=== PATIENT | male | born 1985 | race Caucasian/White ===

== ENCOUNTER 2017-11-27 19:20 | Emergency (ER) | payer BC ==
[2017-11-27] MEDS ORDERED: HYDROcodone/ACETAMIN 5-325 MG* 1 TAB PO ONE (20:30)
--- NOTE | 2017-11-27 21:07 | ED ---
Lower Extremity - HPI Summary HPI Summary: Patient complains of left lower extremity pain from foot to left knee after mechanical fall today. Patient states pain with ambulation and flexion and extension of left knee, left ankle. Patient was attempting to jump off a six- foot bridge but slipped and fell before actually jumping off bridge. Denies head trauma, LOC, N/V, BURT, neck pain, back pain, bilateral upper extremity pain , right lower extremity pain, abdominal pain, chest wall pain. Medical history is none. Surgical history is left elbow repair. Positive smoker. Denies EtOH , illegal drug use. - History of Current Complaint Chief Complaint: EDExtremityLower Stated Complaint: LT KNEE INJURY/NUMBNESS Time Seen by Provider: 11/27/17 19:55 Hx Obtained From: Patient Mechanism Of Injury: Fall From A Standing Position Onset of Pain: Immediate Onset/Duration: Hours Severity Initially: Moderate Severity Currently: Moderate Pain Intensity: 8 Pain Scale Used: 0-10 Numeric Timing: Constant Associated Signs And Symptoms: Positive: Knee Pain Aggravating Factor(s): Standing, Ambulation, Movement, Weight Bearing Alleviating Factor(s): Nothing Able to Bear Weight: Yes - Allergies/Home Medications Allergies/Adverse Reactions: Allergies Allergy/AdvReac Type Severity Reaction Status Date / Time cyclobenzaprine Allergy Swelling Verified 11/27/17 19:35 [From Flexeril] PMH/Surg Hx/FS Hx/Imm Hx Endocrine/Hematology History: Denies: Hx Diabetes, Hx Thyroid Disease Cardiovascular History: Reports: Hx Hypertension - Pt report HX of HTN Respiratory History: Reports: Hx Asthma Denies: Hx Chronic Obstructive Pulmonary Disease (COPD) GI History: Denies: Hx Ulcer Sensory History: Denies: Hx Cataracts EENT History: Denies: Hx Deafness Neurological History: Denies: Hx CVA Psychiatric History: Reports: Hx Attention Deficit Hyperactivity Disorder, Hx Bipolar Disorder, Hx of Violent Episodes Against Others Denies: Hx Eating Disorder - Cancer History Hx Chemotherapy: No - Surgical History Surgery Procedure, Year, and Place: abdominal surgery, elbow surgery Infectious Disease History: No Infectious Disease History: Reports: Hx Hepatitis - C Denies: Hx Clostridium Difficile, Hx Human Immunodeficiency Virus (HIV), Hx of Known/Suspected MRSA, Hx Shingles, Hx Tuberculosis, Hx Known/Suspected VRE, Hx Known/Suspected VRSA, History Other Infectious Disease, Traveled Outside the [place] in Last 30 Days - Family History Known Family History: Positive: Hypertension, Other - cancer - Social History Alcohol Use: Occasionally Alcohol Amount: 30 pack /day per H&P, Pt stated to nursing staff 30 pack per week pt unsure Substance Use Type: Reports: None Smoking Status (MU): Heavy Every Day Tobacco Smoker Type: Cigarettes, Smokeless Tobacco Amount Used/How Often: 1 can/ day 10-20 cigarettes rolled per day Length of Time of Smoking/Using Tobacco: "I began at age 3" Have You Smoked in the Last Year: Yes Review of Systems Constitutional: Negative Eyes: Negative ENT: Negative Cardiovascular: Negative Respiratory: Negative Gastrointestinal: Negative Genitourinary: Negative Positive: Other Positive: Bruising Neurological: Negative Psychological: Normal All Other Systems Reviewed And Are Negative: Yes Physical Exam - Summary Physical Exam Summary: Abrasion to left knee. No erythema, ecchymosis, deformity, swelling, extra warmth to left knee joint, left ankle joint, left foot. Tenderness to palpation of left knee, left ankle, left foot. Patient will not flex or extend left knee "because of pain". Flexion and extension of left ankle with pain. PMS intact distally. Triage Information Reviewed: Yes Vital Signs On Initial Exam: Initial Vitals Temp Pulse Resp BP Pulse Ox 99.2 F 89 18 132/77 97 11/27/17 19:20 11/27/17 19:20 11/27/17 19:20 11/27/17 19:20 11/27/17 19:20 Vital Signs Reviewed: Yes Appearance: Positive: Well-Appearing Skin: Positive: Warm Head/Face: Positive: Normal Head/Face Inspection Eyes: Positive: Normal Neck: Positive: Supple Respiratory/Lung Sounds: Positive: Clear to Auscultation Cardiovascular: Positive: Normal Abdomen Description: Positive: Nontender Musculoskeletal: Positive: Other Neurological: Positive: Normal Psychiatric: Positive: Normal AVPU Assessment: Alert - Margie Coma Scale Best Eye Response: 4 - Spontaneous Best Motor Response: 6 - Obeys Commands Best Verbal Response: 5 - Oriented Coma Scale Total: 15 Diagnostics - Vital Signs Vital Signs Temp Pulse Resp BP Pulse Ox 11/27/17 19:20 99.2 F 89 18 132/77 97 - Laboratory Lab Statement: Any lab studies that have been ordered have been reviewed, and results considered in the medical decision making process. - Radiology foot Xray Interpretation: No Acute Changes Radiology Interpretation Completed By: Radiologist ank;le Xray Interpretation: No Acute Changes Radiology Interpretation Completed By: Radiologist knee Xray Interpretation: No Acute Changes Radiology Interpretation Completed By: Radiologist Lower Extremity Course/Dx - Course Course Of Treatment: Patient complains of left lower extremity pain from foot to left knee after mechanical fall today. Patient states pain with ambulation and flexion and extension of left knee, left ankle. Patient was attempting to jump off a six-foot bridge but slipped and fell before actually jumping off bridge. Denies head trauma, LOC, N/V, BURT, neck pain, back pain, bilateral upper extremity pain, right lower extremity pain, abdominal pain, chest wall pain. Medical history is none. Surgical history is left elbow repair. Positive smoker. Denies EtOH, illegal drug use. Abrasion to left knee. No erythema, ecchymosis, deformity, swelling, extra warmth to left knee joint, left ankle joint, left foot. Tenderness to palpation of left knee, left ankle, left foot. Patient will not flex or extend left knee "because of pain". Flexion and extension of left ankle with pain. PMS intact distally. Imaging negative. Ankle brace and crutches for patient. Abrasion washed. Follow-up with orthopedics if symptoms do not improve. - Diagnoses Provider Diagnoses: Fall Discharge - Sign-Out/Discharge Documenting (check all that apply): Discharge/Admit/Transfer - Discharge Plan Condition: Stable Disposition: HOME Referrals: Cain Moreno MD [Primary Care Provider] - Shiela Ba MD [Medical Doctor] - Additional Instructions: Ice, elevation, Tylenol and ibuprofen for pain until symptoms improve. If symptoms do not improve within 5-7 days follow-up with orthopedics Dr. Ba. Return to the ED for any new or worsening symptoms - Billing Disposition and Condition Condition: STABLE Disposition: Home
--- NOTE | 2017-11-27 21:15 | RAD ---
INDICATION: Left ankle injury. TECHNIQUE: 3 views of the left ankle were obtained. FINDINGS: The bones are in normal alignment. No fracture is seen. Joint spaces appear maintained. IMPRESSION: NO EVIDENCE FOR FRACTURE.
--- NOTE | 2017-11-27 21:17 | RAD ---
INDICATION: Left foot injury. TECHNIQUE: 3 views of the left foot were obtained. FINDINGS: The bones are in normal alignment. No fracture is seen. Joint spaces appear maintained. IMPRESSION: NO EVIDENCE OF FRACTURE. IF THE PATIENT'S SYMPTOMS PERSIST RECOMMEND FOLLOW-UP IMAGING.
--- NOTE | 2017-11-27 21:18 | RAD ---
INDICATION: Left knee injury. TECHNIQUE: 4 views of the left knee were obtained. FINDINGS: The bones are in normal alignment. No joint effusion or fracture is seen. Joint spaces appear maintained. IMPRESSION: NO EVIDENCE FOR FRACTURE.
[2017-11-27 22:00] VITALS: BP 136/85
== END 2017-11-27 21:55 | disposition home or self-care (01) ==
LOC: ED 19:20
DX: M79.672 Pain in left foot (principal); M25.562 Pain in left knee; W01.0XXA Fall on same level from slipping, tripping and stumbling without subsequent striking against object, initial encounter; Y92.89 Other specified places as the place of occurrence of the external cause; F17.210 Nicotine dependence, cigarettes, uncomplicated; F17.290 Nicotine dependence, other tobacco product, uncomplicated; Z88.8 Allergy status to other drugs, medicaments and biological substances
CPT/HCPCS: 99283

== ENCOUNTER 2018-04-14 00:08 | Emergency (ER) | payer BC, MEDICAID ==
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
[2018-04-14] MEDS ORDERED: Cephalexin CAP* 500 MG PO ONE (01:05)
[2018-04-14 01:16] VITALS: BP 139/79
== END 2018-04-14 01:15 | disposition home or self-care (01) ==
LOC: ED 00:08
DX: S91.115A Laceration without foreign body of left lesser toe(s) without damage to nail, initial encounter (principal); S00.81XA Abrasion of other part of head, initial encounter; W25.XXXA Contact with sharp glass, initial encounter; Y04.0XXA Assault by unarmed brawl or fight, initial encounter; Y92.9 Unspecified place or not applicable; I10 Essential (primary) hypertension; F31.9 Bipolar disorder, unspecified; F90.9 Attention-deficit hyperactivity disorder, unspecified type; F17.210 Nicotine dependence, cigarettes, uncomplicated; S71.011A Laceration without foreign body, right hip, initial encounter; W26.0XXA Contact with knife, initial encounter
CPT/HCPCS: 12001; 99282; A9270-GY

== ENCOUNTER 2018-12-22 06:39 | Emergency (ER) | payer MEDICAID ==
[2018-12-22] MEDS ORDERED: Ketorolac *IM* INJ* 60 MG/2 ML VIAL IM ONE (07:20)
--- NOTE | 2018-12-22 08:32 | ED ---
Skin Complaint - HPI Summary HPI Summary: Patient is a 33-year-old male presenting to the ED with right arm pain. He states he injected methamphetamine last night around midnight, and immediately following had pains shooting to the fingertips as well as up into the neck. He denies any numbness or tingling, only pain. He is also endorsing swelling and ecchymosis around the injection site. He denies injecting previously, however he is noted to have several tracts to the bilateral arms. He has been endorsing pain since the injection and states the area has not been improving. Denies recent illness, fevers, sweats, chills. - History of Current Complaint Chief Complaint: EDExtremityUpper Time Seen by Provider: 12/22/18 06:54 Stated Complaint: R ARM PAIN/POS OVERDOSE PER EMS Hx Obtained From: Patient Onset/Duration: Started Hours Ago Skin Exposure Onset/Duration: Hours Ago Timing: Constant Onset Severity: Severe Current Severity: Severe Pain Intensity: 10 Pain Scale Used: 0-10 Numeric Aggravating Symptom(s): Touch Associated Signs & Symptoms: Negative Related History: Trauma, Alcohol/Drug intoxication - Additional Pertinent History Primary Care Physician: [id number] - Allergy/Home Medications Allergies/Adverse Reactions: Allergies Allergy/AdvReac Type Severity Reaction Status Date / Time cyclobenzaprine Allergy Severe Anaphylatic Verified 12/22/18 06:45 [From Flexeril] Shock PMH/Surg Hx/FS Hx/Imm Hx Previously Healthy: Yes Endocrine/Hematology History: Denies: Hx Diabetes, Hx Thyroid Disease Cardiovascular History: Reports: Hx Hypertension - Pt report HX of HTN Respiratory History: Reports: Hx Asthma Denies: Hx Chronic Obstructive Pulmonary Disease (COPD) GI History: Denies: Hx Ulcer Sensory History: Denies: Hx Cataracts, Hx Deafness Opthamlomology History: Denies: Hx Cataracts Neurological History: Denies: Hx CVA Psychiatric History: Reports: Hx Attention Deficit Hyperactivity Disorder, Hx Bipolar Disorder, Hx of Violent Episodes Against Others Denies: Hx Eating Disorder - Cancer History Hx Chemotherapy: No - Surgical History Surgery Procedure, Year, and Place: abdominal surgery, elbow surgery - Immunization History Date of Tetanus Vaccine: UTD Hx Pertussis Vaccination: No Immunizations Up to Date: Yes Infectious Disease History: No Infectious Disease History: Reports: Hx Hepatitis - C Denies: Hx Clostridium Difficile, Hx Human Immunodeficiency Virus (HIV), Hx of Known/Suspected MRSA, Hx Shingles, Hx Tuberculosis, Hx Known/Suspected VRE, Hx Known/Suspected VRSA, History Other Infectious Disease, Traveled Outside the [place] in Last 30 Days - Family History Known Family History: Positive: Hypertension, Other - cancer - Social History Occupation: Employed Full-time Lives: With Family Alcohol Use: None Alcohol Amount: 30 pack /day per H&P, Pt stated to nursing staff 30 pack per week pt unsure Hx Substance Use: Yes Substance Use Type: Reports: Other - injects methamphetamine Hx Tobacco Use: Yes Smoking Status (MU): Heavy Every Day Tobacco Smoker Type: Cigarettes, Smokeless Tobacco Amount Used/How Often: 1 can/ day 10-20 cigarettes rolled per day Length of Time of Smoking/Using Tobacco: "I began at age 3" Have You Smoked in the Last Year: Yes Review of Systems Constitutional: Negative Negative: Fever, Chills, Fatigue, Skin Diaphoresis Negative: Palpitations, Chest Pain Negative: Shortness Of Breath, Cough Genitourinary: Negative Positive: no symptoms reported, see HPI Negative: Arthralgia, Myalgia Skin: Negative Neurological: Negative All Other Systems Reviewed And Are Negative: Yes Physical Exam Triage Information Reviewed: Yes Vital Signs On Initial Exam: Initial Vitals Temp Pulse Resp BP Pulse Ox 98.8 F 92 16 168/104 99 12/22/18 06:40 12/22/18 06:40 12/22/18 06:40 12/22/18 06:40 12/22/18 06:40 Vital Signs Reviewed: Yes Appearance: Positive: Well-Appearing, Well-Nourished Skin: Positive: Other - several inj sites/track christie throughout bilateral forearms Head/Face: Positive: Normal Head/Face Inspection Eyes: Positive: EOMI, KURTIS, Conjunctiva Clear Neck: Positive: Supple, No Lymphadenopathy Respiratory/Lung Sounds: Positive: Clear to Auscultation, Breath Sounds Present Cardiovascular: Positive: RRR, Pulses are Symmetrical in both Upper and Lower Extremities Musculoskeletal: Positive: Pain @ - right forearm distal to the R antecubital fossa developed Neurological: Positive: Speech Normal Diagnostics - Vital Signs Vital Signs Temp Pulse Resp BP Pulse Ox 12/22/18 07:00 85 22 99 12/22/18 06:49 89 26 99 12/22/18 06:40 98.8 F 92 16 168/104 99 - Laboratory Lab Statement: Any lab studies that have been ordered have been reviewed, and results considered in the medical decision making process. Course/Dx - Course Course Of Treatment: Patient's evaluated for right arm pain after injecting methamphetamine last evening. On physical examination, there is approximate 5 cm in length to 3 cm in width slightly raised area over the injection site just distal to the antecubital fossa to the radial side of the forearm. There are several injection site/track christie to the bilateral arms. Pulses +2 intact bilaterally. No numbness or tingling. Patient has full range of motion to the fingertips, hand, wrist, elbow, shoulder. He states the pain dissipates when he compresses the arm near the antecubital area. However when he lets go, the pain returns. It is rated a 10 out of 10, sharp and shooting. US obtained to assess for FB, clot and/or intramuscular edema vs. abscess vs hematoma. He is given toradol in the ED. US reveals a SVT. Toradol as rx. - Diagnoses Provider Diagnoses: Superficial thrombophlebitis of arm, Methamphetamine abuse, Injection site reaction Discharge - Sign-Out/Discharge Documenting (check all that apply): Patient Departure Patient Received Moderate/Deep Sedation with Procedure: No - Discharge Plan Condition: Stable Disposition: HOME Prescriptions: Ketorolac TAB * [Toradol TAB *] 10 mg PO Q6H #16 tab Sulfamethox/Trimethoprim DS* [Bactrim DS 800/160 TAB*] 1 tab PO BID #10 tab Patient Education Materials: Superficial Thrombophlebitis (ED) Referrals: Cain Moreno MD [Medical Doctor] - Additional Instructions: Toradol four times daily x 4 days Bactrim twice daily x 5 days - Billing Disposition and Condition Condition: STABLE Disposition: Home
[2018-12-22 09:16] VITALS: BP 141/91
== END 2018-12-22 09:15 | disposition home or self-care (01) ==
LOC: ED 06:39
DX: I80.8 Phlebitis and thrombophlebitis of other sites (principal); F15.10 Other stimulant abuse, uncomplicated; I10 Essential (primary) hypertension; F17.210 Nicotine dependence, cigarettes, uncomplicated; Z88.8 Allergy status to other drugs, medicaments and biological substances
CPT/HCPCS: 96372; 99282; J1885

== ENCOUNTER 2019-04-14 06:29 | Emergency (ER) | payer MEDICAID ==
--- NOTE | 2019-04-14 07:27 | ED ---
Head Injury - HPI Summary HPI Summary: Patient is a 33-year-old male who presents to emergency department for head injury that occurred around 0 100 today. Patient states he recently started working at [employer] and his shift starts around 0 300. Patient states he has been sleeping and upright office chair and at some point last night fell off chair while sleeping and struck head on a wood burner. Patient is unsure if fall woke him up and is unsure if he lost consciousness. Patient states since has had a headache 5 out of 10 and is felt dizzy. Patient states he went to work and his boss referred him to the ER for evaluation given pain and dizziness and inability to work. No other injuries were sustained. Last tetanus immunization was within 5 years. Patient has history of drug and alcohol use but denies any use recently. Symptoms are moderate in severity. No current modifying factors. - History Of Current Complaint Chief Complaint: EDHeadInjury Stated Complaint: HEAD LAC PER PT Time Seen by Provider: 04/14/19 06:54 Hx Obtained From: Patient Pain Intensity: 5 - Allergies/Home Medications Allergies/Adverse Reactions: Allergies Allergy/AdvReac Type Severity Reaction Status Date / Time cyclobenzaprine Allergy Severe Anaphylatic Verified 04/14/19 07:11 [From Flexeril] Shock Home Medications: Home Medications NK [No Home Medications Reported] 04/14/19 [History Confirmed 04/14/19] PMH/Surg Hx/FS Hx/Imm Hx Previously Healthy: Yes Endocrine/Hematology History: Denies: Hx Diabetes, Hx Thyroid Disease Cardiovascular History: Reports: Hx Hypertension - Pt report HX of HTN Respiratory History: Reports: Hx Asthma Denies: Hx Chronic Obstructive Pulmonary Disease (COPD) GI History: Denies: Hx Ulcer Sensory History: Denies: Hx Cataracts, Hx Deafness Opthamlomology History: Denies: Hx Cataracts Neurological History: Denies: Hx CVA Psychiatric History: Reports: Hx Attention Deficit Hyperactivity Disorder, Hx Bipolar Disorder, Hx of Violent Episodes Against Others Denies: Hx Eating Disorder - Cancer History Hx Chemotherapy: No - Surgical History Surgery Procedure, Year, and Place: abdominal surgery, elbow surgery - Immunization History Date of Tetanus Vaccine: UTD Infectious Disease History: No Infectious Disease History: Reports: Hx Hepatitis - C Denies: Hx Clostridium Difficile, Hx Human Immunodeficiency Virus (HIV), Hx of Known/Suspected MRSA, Hx Shingles, Hx Tuberculosis, Hx Known/Suspected VRE, Hx Known/Suspected VRSA, History Other Infectious Disease, Traveled Outside the [place] in Last 30 Days - Family History Known Family History: Positive: Hypertension, Other - cancer, Non-Contributory - Social History Occupation: Employed Full-time Lives: With Family Alcohol Use: None Alcohol Amount: "not in a long time" Hx Substance Use: Yes Substance Use Type: Reports: None Hx Tobacco Use: Yes Smoking Status (MU): Heavy Every Day Tobacco Smoker Type: Cigarettes, Smokeless Tobacco Amount Used/How Often: 1 can/ day 10-20 cigarettes rolled per day Length of Time of Smoking/Using Tobacco: "I began at age 3" Have You Smoked in the Last Year: Yes Review of Systems Eyes: Negative ENT: Negative Cardiovascular: Negative Respiratory: Negative Gastrointestinal: Negative Positive: Other - scalp laceration Positive: Headache All Other Systems Reviewed And Are Negative: Yes Physical Exam Triage Information Reviewed: Yes Vital Signs On Initial Exam: Initial Vitals Temp Pulse Resp BP Pulse Ox 98.8 F 91 18 140/58 98 04/14/19 06:31 04/14/19 06:31 04/14/19 06:31 04/14/19 06:31 04/14/19 06:31 Vital Signs Reviewed: Yes Appearance: Positive: Well-Nourished - Patient sitting on bed looking down. Poor eye contact. Difficulty understanding patient with speaking. Slightly delayed responses. Skin: Positive: Warm, Dry Head/Face: Positive: Other - 4 cm irregular superficial laceration noted to the right aspect of the frontal scalp. No active bleeding. Eyes: Positive: Normal, EOMI, KURTIS Neck: Positive: Supple Musculoskeletal: Positive: Normal, Strength/ROM Intact Neurological: Positive: Normal, Alert, Oriented to Person Place, Time, CN Intact II-III Psychiatric: Positive: Depressed Procedures - Procedure Summary Procedure Summary: Wound care: A 4 cm irregular laceration to the right anterior scalp was cleaned with Hibiclens and saline. 2 layers of skin adhesion was placed to approximate wound. Patient tolerated well. - Sedation Patient Received Moderate/Deep Sedation with Procedure: No Diagnostics - Vital Signs Vital Signs Temp Pulse Resp BP Pulse Ox 04/14/19 07:00 85 98 04/14/19 06:55 90 134/82 98 04/14/19 06:31 98.8 F 91 18 140/58 98 - Laboratory Lab Statement: Any lab studies that have been ordered have been reviewed, and results considered in the medical decision making process. Head Injury Course/Dx Assessment/Plan: Patient presenting for evaluation after head injury and scalp laceration. Patient's is a poor historian and unable clear of the exact injury. Patient has an odd affect on exam. Given history of drug and alcohol use Will obtain CT scan to rule out intracranial injury due to possible intoxication, poor historian and thought affect. Brain CT negative for acute findings per radiology. Wound was cared for as noted above. Patient can follow up with the [facility] within one week for recheck. Advised patient Tylenol which pain as directed. To return to the er if symptoms change or worsen. Patient understands and agrees with plan. - Diagnoses Differential Diagnosis/HQI/PQRI: Concussion With LOC, Concussion Without LOC, Hematoma, Intracranial Bleed, Laceration, Skull Fracture Provider Diagnoses: Head injury, Scalp laceration Discharge ED - Sign-Out/Discharge Documenting (check all that apply): Patient Departure - Discharge Plan Condition: Good Disposition: HOME Patient Education Materials: Laceration (ED), Head Injury (ED), Skin Adhesive Care (ED) Referrals: [facility] [Outside] Additional Instructions: Follow up with the [facility] for recheck within one week Keep wound clean and dry Tylenol or Motrin for pain as directed Return to ER if symptoms change or worsen - Billing Disposition and Condition Condition: GOOD Disposition: Home - Attestation Statements Provider Attestation: I was available for consultation for this patient. I did not evaluate the patient or participate in any medical decision making or disposition decisions unless I am specifically named in the chart as having consulted on the patient. If I have consulted on the patient, please see my own ED note on the patient encounter. Bhavesh Whalen MD
[2019-04-14 08:39] VITALS: BP 154/90
== END 2019-04-14 08:40 | disposition home or self-care (01) ==
LOC: ED 06:29
DX: S01.01XA Laceration without foreign body of scalp, initial encounter (principal); W07.XXXA Fall from chair, initial encounter; Y92.9 Unspecified place or not applicable; Z88.8 Allergy status to other drugs, medicaments and biological substances; I10 Essential (primary) hypertension; J45.909 Unspecified asthma, uncomplicated; F90.9 Attention-deficit hyperactivity disorder, unspecified type; F31.9 Bipolar disorder, unspecified; F17.210 Nicotine dependence, cigarettes, uncomplicated
CPT/HCPCS: 12002; 70450; 99282

== ENCOUNTER 2019-05-10 16:20 | Emergency (ER) | payer SELFPAY ==
[2019-05-10 16:47] VITALS: BP 151/82
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
== END 2019-05-10 18:08 | disposition home or self-care (01) ==
LOC: UCEAST 16:20
DX: J18.1 Lobar pneumonia, unspecified organism (principal); I10 Essential (primary) hypertension; F17.290 Nicotine dependence, other tobacco product, uncomplicated; Z88.8 Allergy status to other drugs, medicaments and biological substances; Z79.899 Other long term (current) drug therapy
CPT/HCPCS: 71046; 99212; G0463

== ENCOUNTER 2019-08-02 08:38 | Emergency (ER) | payer SELFPAY ==
[2019-08-02 08:57] VITALS: BP 151/91
--- NOTE | 2019-08-02 09:41 | UC ---
Lower Extremity/Ankle HPI - HPI Summary HPI Summary: PATIENT WORKS FOR [employer]. DROPPED A VERY HEAVY BOX ON HIS RIGHT FOOT JUST PRIOR TO ARRIVAL. IS COMPLAINING OF PAIN OVER THE BRIDGE OF HIS RIGHT FOOT AND SWELLING. STATES THAT FOR THE PAST COUPLE OF WEEKS HE HAS NOTICED REDNESS AND SWELLING IN BOTH HIS FEET. DENIES BEING OUT IN THE COLD/WET FOR ANY SIGNIFICANT PERIOD OF TIME. NO PAIN. NO FEVER. - History of Current Complaint Chief Complaint: UCLowerExtremity Stated Complaint: FOOT INJURY Time Seen by Provider: 08/02/19 09:40 Hx Obtained From: Patient Onset/Duration: Sudden Onset, Lasting Hours Severity Initially: Moderate Severity Currently: Moderate Pain Intensity: 6 Pain Scale Used: 0-10 Numeric Aggravating Factor(s): Standing, Ambulation Alleviating Factor(s): Rest, Elevation Able to Bear Weight: Yes - Allergies/Home Medications Allergies/Adverse Reactions: Allergies Allergy/AdvReac Type Severity Reaction Status Date / Time cyclobenzaprine Allergy Severe Anaphylatic Verified 08/02/19 08:57 [From Flexeril] Shock Home Medications: Home Medications Pseudoephedrine HCL ER TAB* [Sudafed 12 Hour*] 120 mg PO BID 08/02/19 [History Confirmed 08/02/19] PMH/Surg Hx/FS Hx/Imm Hx Cardiovascular History: Hypertension Respiratory History: Asthma Other History Of: Hepatitis C - Surgical History Surgical History: Yes Surgery Procedure, Year, and Place: abdominal surgery, elbow surgery - Family History Known Family History: Positive: Hypertension, Other - cancer, Non-Contributory - Social History Alcohol Use: Rare Alcohol Amount: "not in a long time" Substance Use Type: None Smoking Status (MU): Former Smoker Type: Cigars Amount Used/How Often: 1 can/ day 10-20 cigarettes rolled per day Length of Time of Smoking/Using Tobacco: "I began at age 3" Have You Smoked in the Last Year: Yes Household Exposure Type: Cigarettes - Immunization History Most Recent Influenza Vaccination: never Most Recent Tetanus Shot: 2014 Most Recent Pneumonia Vaccination: unknown Review of Systems All Other Systems Reviewed And Are Negative: Yes Constitutional: Positive: Negative Skin: Positive: Other - FOOT ERYTHEMA Respiratory: Positive: Negative Cardiovascular: Positive: Negative Gastrointestinal: Positive: Negative Musculoskeletal: Positive: Edema Physical Exam Triage Information Reviewed: Yes Appearance: Well-Appearing, No Pain Distress, Well-Nourished Vital Signs: Initial Vital Signs Temp 98.1 F 08/02/19 08:52 Pulse 101 08/02/19 08:52 Resp 18 08/02/19 08:52 BP 151/91 08/02/19 08:52 Pulse Ox 97 08/02/19 08:52 Eyes: Positive: Conjunctiva Clear ENT: Positive: Hearing grossly normal Neck: Positive: Supple Respiratory: Positive: No respiratory distress, No accessory muscle use Cardiovascular: Positive: Pulses Normal Abdomen Description: Positive: Soft Musculoskeletal: Positive: Edema @ - 1+ RIGHT FOOT/ANKLE EDEMA., Other: - TTP RIGHT FOOT OVERLYING 1ST, 2ND METATARSALS Neurological: Positive: Alert Psychological: Positive: Age Appropriate Behavior Skin: Positive: Other - BILATERAL FEET EXTREMELY DIRTY AND ERYTHEMATOUS WITH MULTIPLE HEALING ABRASIONS ON FEET, ANKLES AND SHINS. NOT TENDER Diagnostics - Radiology RIGHT FOOT XRAYS Radiology Interpretation Completed By: Radiologist Summary of Radiographic Findings: NO ACUTE OSSEOUS INJURY. Lower Extremity Course/Dx - Course Course Of Treatment: X-RAY OF THE RIGHT FOOT NEGATIVE FOR FRACTURE. LIKELY CONTUSION. ADVISED OTC MEDICATIONS FOR DISCOMFORT. REST, ICE, ELEVATE. PATIENT DECLINES APOLINAR WRAP AND CAMBOOT. PATIENT ALSO COMPLAINING OF ABOUT 2 WEEKS OF RUDDINESS TO BOTH HIS FEET. NO PAIN. DENIES ANY PROLONGED EXPOSURE TO COLD/WET. PRESENTATION NOT CONSISTENT WITH FROSTBITE. HE DOES HAVE MULTIPLE HEALING ABRASIONS OVER HIS SHINS, ANKLES AND FEET. BOTH HIS FEET ARE EXTREMELY DIRTY. HE DENIES ANY NUMBNESS. GIVEN THE APPEARANCE WILL GO AHEAD AND COVER FOR CELLULITIS WITH AN ANTIBIOTIC ALTHOUGH GIVEN THAT HE HAS NO PAIN WE DISCUSSED THE POSSIBILITY THAT THIS MAY NOT HELP. HE IS TO FOLLOW-UP WITH PODIATRY. - Differential Dx/Diagnosis Provider Diagnosis: Contusion of right foot, Cellulitis of both feet Discharge ED - Sign-Out/Discharge Documenting (check all that apply): Patient Departure All imaging exams completed and their final reports reviewed: Yes - Discharge Plan Condition: Stable Disposition: HOME Prescriptions: Cephalexin CAP* [Keflex 500 CAP*] 1,000 mg PO BID #28 cap Patient Education Materials: Foot Contusion (ED) Referrals: Care [facility] [Outside] - If Needed Additional Instructions: XRAY TODAY NEGATIVE FOR FRACTURE OR DISLOCATION. YOUR SYMPTOMS SHOULD IMPROVE SIGNIFICANTLY OVER THE NEXT 1-2 WEEKS. IF YOU DO NOT IMPROVE EXPECTED FOLLOW- UP WITH YOUR PCP OR ORTHO. YOU MAY BENEFIT FROM REPEAT IMAGING AT THAT TIME. OTC IBUPROFEN OR ALEVE NEEDED FOR DISCOMFORT. REST, ICE, COMPRESS, ELEVATE. UNCLEAR ETIOLOGY OF THE REDNESS OF YOUR FEET HOWEVER YOU HAVE MULTIPLE HEALING ABRASIONS SO WILL COVER FOR CELLULITIS WITH ANTIBIOTICS. IF YOUR SYMPTOMS DO NOT IMPROVE WITH THIS TREATMENT FOLLOW-UP WITH A DOCUMENT CONTROL ASSISTANT. TRY TO KEEP YOUR FEET INCLUDING THE AREAS IN BETWEEN YOUR TOES CLEAN AND DRY. PODIATRY IN [facility] Dr. Sarah Barrios [address] [place] [address] [facility] [address] Rex Ocampo [address] [facility] Dr[address] Dallas Chowdary. [address] [place] [address] Please call his office at [phone] to make an appointment to be seen Dr. Simon Johnson. [address] [place] [address] - Billing Disposition and Condition Condition: STABLE Disposition: Home
== END 2019-08-02 10:16 | disposition home or self-care (01) ==
LOC: UCEAST 08:38
DX: S90.31XA Contusion of right foot, initial encounter (principal); S90.812A Abrasion, left foot, initial encounter; S90.811A Abrasion, right foot, initial encounter; S90.512A Abrasion, left ankle, initial encounter; S90.511A Abrasion, right ankle, initial encounter; S80.812A Abrasion, left lower leg, initial encounter; S80.811A Abrasion, right lower leg, initial encounter; L03.116 Cellulitis of left lower limb; L03.115 Cellulitis of right lower limb; J45.909 Unspecified asthma, uncomplicated; I10 Essential (primary) hypertension; Z88.8 Allergy status to other drugs, medicaments and biological substances; Z87.891 Personal history of nicotine dependence; W20.8XXA Other cause of strike by thrown, projected or falling object, initial encounter; Y92.9 Unspecified place or not applicable
CPT/HCPCS: 99212; G0463

== ENCOUNTER 2019-08-27 13:04 | Emergency (ER) | payer BC ==
--- NOTE | 2019-08-27 13:29 | ED ---
Lower Extremity - HPI Summary HPI Summary: 33-year-old male with a significant past medical history of hypertension presents to the emergency department today complaining of bilateral swelling of the lower extremities which has been occurring for approximately one month. Patient states after long periods of being on his feet this swelling is made worse. Patient states his legs become red and swollen however in the emergency department there is no noted rash or edema of the lower extremities. Patient states 2 weeks ago he completed a course of Keflex for presumed cellulitis of the lower extremities. Patient is otherwise well and denies fever, chest pain, abdominal pain, pain urination, nausea, vomiting, diarrhea, pain with palpation of the lower extremities. Patient has full range of motion and is neurovascularly intact. - History of Current Complaint Chief Complaint: EDExtremityLower Stated Complaint: LEGS/HANDS KEEP SWELLING PER PT Time Seen by Provider: 08/27/19 13:14 Hx Obtained From: Patient Onset of Pain: Prior to Arrival Onset/Duration: Still Present Severity Initially: Mild Severity Currently: None Pain Intensity: 0 Pain Scale Used: 0-10 Numeric Timing: Constant Associated Signs And Symptoms: Positive: Swelling, Redness - Allergies/Home Medications Allergies/Adverse Reactions: Allergies Allergy/AdvReac Type Severity Reaction Status Date / Time cyclobenzaprine Allergy Severe Anaphylatic Verified 08/27/19 13:11 [From Flexeril] Shock Home Medications: Home Medications NK [No Home Medications Reported] 08/27/19 [History Confirmed 08/27/19] PMH/Surg Hx/FS Hx/Imm Hx Endocrine/Hematology History: Denies: Hx Diabetes, Hx Thyroid Disease Cardiovascular History: Reports: Hx Hypertension - Pt report HX of HTN Respiratory History: Reports: Hx Asthma Denies: Hx Chronic Obstructive Pulmonary Disease (COPD) GI History: Denies: Hx Ulcer Sensory History: Denies: Hx Cataracts, Hx Deafness Opthamlomology History: Denies: Hx Cataracts Neurological History: Denies: Hx CVA Psychiatric History: Reports: Hx Attention Deficit Hyperactivity Disorder, Hx Bipolar Disorder, Hx of Violent Episodes Against Others Denies: Hx Eating Disorder - Cancer History Hx Chemotherapy: No - Surgical History Surgery Procedure, Year, and Place: abdominal surgery, elbow surgery - Immunization History Date of Tetanus Vaccine: UTD Infectious Disease History: No Infectious Disease History: Reports: Hx Hepatitis - C Denies: Hx Clostridium Difficile, Hx Human Immunodeficiency Virus (HIV), Hx of Known/Suspected MRSA, Hx Shingles, Hx Tuberculosis, Hx Known/Suspected VRE, Hx Known/Suspected VRSA, History Other Infectious Disease, Traveled Outside the [place] in Last 30 Days - Family History Known Family History: Positive: Hypertension, Other - cancer, Non-Contributory - Social History Alcohol Use: Weekly Alcohol Amount: 3-4 beers when he does Hx Substance Use: Yes Substance Use Type: Reports: None Hx Tobacco Use: Yes Smoking Status (MU): Current Every Day Smoker Type: Cigars Amount Used/How Often: 1 can/ day 10-20 cigarettes rolled per day Length of Time of Smoking/Using Tobacco: "I began at age 3" Have You Smoked in the Last Year: Yes Review of Systems Constitutional: Negative Eyes: Negative ENT: Negative Cardiovascular: Negative Respiratory: Negative Gastrointestinal: Negative Genitourinary: Negative Positive: Edema. Negative: Arthralgia, Myalgia Skin: Negative Neurological/Mental Status: Negative Psychological: Normal All Other Systems Reviewed And Are Negative: Yes Physical Exam - Summary Physical Exam Summary: Patient is in no acute distress. Patient is ambulatory with a normal gait. There is no noted edema to the lower extremities bilaterally. Skin is warm and dry with no discoloration. Dorsalis pedis pulses 2+ bilaterally. Patient has full range of motion of the lower extremities bilaterally and is neurovascularly intact bilaterally. No evidence of cellulitis or rash. Triage Information Reviewed: Yes Vital Signs On Initial Exam: Initial Vitals Temp Pulse Resp BP Pulse Ox 99.1 F 105 16 155/118 98 08/27/19 13:06 08/27/19 13:06 08/27/19 13:06 08/27/19 13:06 08/27/19 13:06 Vital Signs Reviewed: Yes Appearance: Positive: Well-Appearing, No Pain Distress, Well-Nourished Skin: Positive: Warm, Skin Color Reflects Adequate Perfusion Eyes: Positive: EOMI, KURTIS ENT: Positive: Hearing grossly normal Respiratory/Lung Sounds: Positive: Clear to Auscultation, Breath Sounds Present Cardiovascular: Positive: RRR, S1, S2 Abdomen Description: Positive: Nontender, Soft Bowel Sounds: Positive: Present Musculoskeletal: Positive: Strength/ROM Intact Neurological: Positive: Sensory/Motor Intact, Alert, Oriented to Person Place, Time, Normal Gait, Facial Symmetry, Speech Normal Psychiatric: Positive: Normal, Affect/Mood Appropriate AVPU Assessment: Alert Procedures - Sedation Patient Received Moderate/Deep Sedation with Procedure: No Diagnostics - Vital Signs Vital Signs Temp Pulse Resp BP Pulse Ox 08/27/19 13:06 99.1 F 105 16 155/118 98 - Laboratory Result Diagrams: 08/27/19 13:39 08/27/19 13:39 Lab Statement: Any lab studies that have been ordered have been reviewed, and results considered in the medical decision making process. Lower Extremity Course/Dx - Course Course Of Treatment: Patient was evaluated in the emergency department today for lower extremities edema. Vitals noted and stable. Patient afebrile. Patient was in no acute distress. Laboratory studies were drawn to investigate possible organ failure as etiology of his symptoms. Laboratory studies returned showing no leukocytosis, anemia or renal failure, signs of hepatic failure or electrolyte disturbance. Urinalysis returned negative for UTI or proteinuria. Upon presentation to the emergency department patient does not have lower extremities edema and has no evidence of rash. Patient does not appear to be experiencing any life-threatening pathology at this time and was discharged to outpatient follow-up. - Diagnoses Differential Diagnosis/HQI/PQRI: Positive: Arthritis, Infection Provider Diagnoses: Lower extremity edema Discharge ED - Sign-Out/Discharge Documenting (check all that apply): Patient Departure - Discharge Plan Condition: Stable Disposition: HOME Patient Education Materials: Leg Edema (ED) Referrals: [facility] [Outside] - 3 Days No Primary Care Phys,NOPCP [Primary Care Provider] - Additional Instructions: It does not appear you are experiencing any significant or life threatening pathology at this time. Laboratory studies returned showing no significant abnormalities. I'm not certain what is causing your symptoms however please follow-up with your primary care provider in 3 days for further evaluation and management. Please return to this emergency Department immediately if you develop any new or worsening symptoms. - Billing Disposition and Condition Condition: STABLE Disposition: Home - Attestation Statements Provider Attestation: I was available for consult. This patient was seen by the DANE. The patient was not presented to, seen by, or examined by me. Franklin Hernandez MD
[2019-08-27 13:44] LABS: ABS Basophils 0.1 10^3/ul (0-0.2); ABS Eosinophils 0.1 10^3/ul (0-0.6); ABS Lymphocytes 1.6 10^3/ul (1.0-4.8); ABS Monocytes 0.6 10^3/ul (0-0.8); ABS Neutrophils 7.6 10^3/ul (1.5-7.7); Eosinophil % 1.4 %; Hematocrit 42 % (42-52); Mean Corpuscular HGB Conc 34 g/dL (31-36); Mean Corpuscular Hemoglobin 30 pg (27-31); Mean Corpuscular Volume 89 fL (80-94); Mean Platelet Volume 7.6 fL (7.4-10.4); Nucleated Red Blood Cells % 0.1; Platelet Count 233 10^3/uL (150-450); Red Blood Count 4.68 10^6 /uL (4.18-5.48); Red Cell Distribution Width 15 % (10-15); White Blood Count 9.9 10^3/uL (3.5-10.8)
[2019-08-27 14:04] LABS: Albumin 4.2 g/dL (3.2-5.2); Albumin/Globulin Ratio 1.8 (1-3); BUN/Creatinine Ratio 16.4 (8-20); EGFR African American 147.9 (>60); EGFR Non-African American 122.3 (>60); Globulin 2.4 g/dL (2-4); Potassium 4.3 mmol/L (3.5-5.0); Total Bilirubin 0.3 mg/dL (0.2-1.0); Total Protein 6.6 g/dL (6.4-8.9)
[2019-08-27 15:54] LABS: Urine Appearance Clear; Urine Bilirubin Negative (Negative); Urine Blood Negative (Negative); Urine Color Yellow; Urine Glucose Negative (Negative); Urine Ketones Negative (Negative); Urine Nitrite Negative (Negative); Urine Protein Negative (Negative); Urine Specific Gravity 1.026 (1.010-1.030); Urine Urobilinogen Negative (Negative)
[2019-08-27 16:19] VITALS: BP 161/104
== END 2019-08-27 16:17 | disposition home or self-care (01) ==
LOC: ED 13:04
DX: R60.9 Edema, unspecified (principal); I10 Essential (primary) hypertension; F17.210 Nicotine dependence, cigarettes, uncomplicated; F90.9 Attention-deficit hyperactivity disorder, unspecified type; Z88.2 Allergy status to sulfonamides
CPT/HCPCS: 36415; 80053; 81003; 85025; 93005; 99282